=== PATIENT | female | born 1985 | race Caucasian/White ===

== ENCOUNTER 2017-10-05 07:10 | Emergency (ER) | payer BC ==
[2017-10-05] MEDS ORDERED: Cephalexin CAP* 500 MG PO ONE (08:17)
[2017-10-05] MEDS ORDERED: Phenazopyridine TAB* 100 MG PO ONE (08:18)
--- NOTE | 2017-10-05 08:18 | UC ---
Complaint Female HPI - HPI Summary HPI Summary: The patient is a 31-year-old female with a 1 day history of dysuria urgency and frequency. She denies fever or chills. She denies any nausea or vomiting. She has mild suprapubic pain. She is currently on her period. A number of years ago she was admitted to the hospital for pyelonephritis. She denies any history of kidney stones. - History Of Current Complaint Chief Complaint: UCGU Stated Complaint: URINARY COMPLAINT Time Seen by Provider: 10/05/17 08:12 Hx Obtained From: Patient Hx Last Menstrual Period: 10/02/17 Onset/Duration: Gradual Onset, Lasting Hours Timing: Intermittent, Lasting Seconds Severity Initially: Mild Severity Currently: Mild Pain Intensity: 1 Pain Scale Used: 0-10 Numeric Aggravating Factor(s): Urination Associated Signs And Symptoms: Positive: Vaginal Bleeding/Discharge - on period Related Hx: Similar Episode/Dx as: - UTI - Allergies/Home Medications Allergies/Adverse Reactions: Allergies Allergy/AdvReac Type Severity Reaction Status Date / Time No Known Allergies Allergy Verified 10/26/15 08:56 PMH/Surg Hx/FS Hx/Imm Hx Previously Healthy: Yes GI/ History: Other Other GI/ History: admitted to hospital once for pyelo - Surgical History Surgical History: None - Family History Known Family History: Positive: None Negative: Cardiac Disease, Hypertension, Diabetes - Social History Alcohol Use: Occasionally Substance Use Type: None Smoking Status (MU): Former Smoker Type: Cigarettes Amount Used/How Often: occasional use Review of Systems Constitutional: Negative Skin: Negative Eyes: Negative ENT: Negative Respiratory: Negative Cardiovascular: Negative Gastrointestinal: Negative Genitourinary: Dysuria, Frequency, Urgency Motor: Negative Neurovascular: Negative Musculoskeletal: Negative Neurological: Negative Psychological: Negative Is Patient Immunocompromised?: No All Other Systems Reviewed And Are Negative: Yes Physical Exam Triage Information Reviewed: Yes Appearance: Well-Appearing, No Pain Distress, Well-Nourished Vital Signs: Initial Vital Signs Temp 97.6 F 10/05/17 07:35 Pulse 53 10/05/17 07:35 Resp 13 10/05/17 07:35 BP 125/77 10/05/17 07:35 Pulse Ox 99 10/05/17 07:35 Eyes: Positive: Conjunctiva Clear ENT: Positive: Hearing grossly normal. Negative: Nasal congestion, Nasal drainage, Trismus, Muffled voice, Hoarse voice Neck: Positive: Supple Respiratory: Positive: Lungs clear, Normal breath sounds, No respiratory distress, No accessory muscle use Cardiovascular: Positive: RRR, No Murmur Abdomen Description: Positive: Nontender, No Organomegaly. Negative: CVA Tenderness (R), CVA Tenderness (L) Bowel Sounds: Positive: Present Musculoskeletal: Positive: ROM Intact, No Edema Neurological: Positive: Alert Psychological Exam: Normal Skin Exam: Normal Diagnostics - Laboratory Diagnostic Studies Completed/Ordered: urine dip + RBCs+WBCs Complaint Female Dx - Differential Dx/Diagnosis Provider Diagnoses: acute dysuria/suspect UTI Discharge - Sign-Out/Discharge Documenting (check all that apply): Discharge/Admit/Transfer - Discharge Plan Condition: Stable Disposition: HOME Prescriptions: Cephalexin CAP* [Keflex CAP*] 500 mg PO BID #9 cap Phenazopyridine TAB* [Pyridium TAB*] 100 mg PO TID #5 tab Patient Education Materials: Urinary Tract Infection in Women (ED) Referrals: No Primary Care Phys,NOPCP [Primary Care Provider] - Additional Instructions: I suspect you have a UTI A urine culture is pending It will take about 48 hours to come back I expect you to be better in about 48 hours If not please call us to check on culture results recheck for fever/severe back pain or vomiting - Billing Disposition and Condition Condition: STABLE Disposition: Home
[2017-10-05 08:43] VITALS: BP 125/77
== END 2017-10-05 08:30 | disposition home or self-care (01) ==
LOC: UCCORT 07:10
DX: R30.0 Dysuria (principal)
CPT/HCPCS: 81003; 87086; 99212; A9270-GY; G0463

== ENCOUNTER 2017-10-11 18:04 | Emergency (ER) | payer BC ==
[2017-10-11 18:21] VITALS: BP 114/89
--- NOTE | 2017-10-11 18:52 | UC ---
Complaint Female HPI - HPI Summary HPI Summary: Patient complains of urinary frequency, burning, urgency starting at 3 PM today. Denies fever, cough, sore throat, CP, SOB, N/V/D, abdominal pain, flank pain, change in BM, vaginal symptoms. Patient was seen here 10/05 for same symptoms and was given an prescription for Keflex. Patient states she took all the Keflex, and symptoms started to resolve same day she started the antibiotics. States today's symptoms are the same as prior symptoms. Also states she had unprotected sex with a new sexual partner and is concerned for herpes exposure and would like to be tested. Denies any vaginal symptoms or lesions. Refuses HIV test, states she has been tested recently. Medical history is none. - History Of Current Complaint Chief Complaint: UCGU Stated Complaint: RE-CK URINARY COMPLAINT Time Seen by Provider: 10/11/17 18:27 Hx Obtained From: Patient Hx Last Menstrual Period: 10/02/17 Severity Currently: None Pain Intensity: 0 Pain Scale Used: 0-10 Numeric Associated Signs And Symptoms: Positive: Negative - Allergies/Home Medications Allergies/Adverse Reactions: Allergies Allergy/AdvReac Type Severity Reaction Status Date / Time No Known Allergies Allergy Verified 10/11/17 18:16 PMH/Surg Hx/FS Hx/Imm Hx Previously Healthy: Yes - Surgical History Surgical History: None - Family History Known Family History: Positive: None Negative: Cardiac Disease, Hypertension, Diabetes - Social History Alcohol Use: Weekly Substance Use Type: None Smoking Status (MU): Former Smoker Type: Cigarettes Amount Used/How Often: occasional use Review of Systems Constitutional: Negative Skin: Negative Eyes: Negative ENT: Negative Respiratory: Negative Cardiovascular: Negative Gastrointestinal: Negative Genitourinary: Dysuria, Frequency, Urgency Motor: Negative Neurovascular: Negative Musculoskeletal: Negative Neurological: Negative Psychological: Negative Is Patient Immunocompromised?: Yes All Other Systems Reviewed And Are Negative: Yes Physical Exam - Summary Physical Exam Summary: Patient refused pelvic exam. Triage Information Reviewed: Yes Appearance: Well-Appearing Vital Signs: Initial Vital Signs Temp 98 F 10/11/17 18:14 Pulse 65 10/11/17 18:14 Resp 16 10/11/17 18:14 BP 114/89 10/11/17 18:14 Pulse Ox 100 10/11/17 18:14 Vital Signs Reviewed: Yes Eyes: Positive: Conjunctiva Clear. Negative: Discharge Neck exam: Normal Neck: Positive: Supple Respiratory Exam: Normal Cardiovascular Exam: Normal Abdominal Exam: Normal Musculoskeletal Exam: Normal Neurological Exam: Normal Psychological Exam: Normal Skin Exam: Normal Complaint Female Dx - Course Course Of Treatment: Patient complains of urinary frequency, burning, urgency starting at 3 PM today. Denies fever, cough, sore throat, CP, SOB, N/V/D, abdominal pain, flank pain, change in BM, vaginal symptoms. Patient was seen here 10/05 for same symptoms and was given an prescription for Keflex. Patient states she took all the Keflex, and symptoms started to resolve same day she started the antibiotics. States today's symptoms are the same as prior symptoms. Also states she had unprotected sex with a new sexual partner and is concerned for herpes exposure and would like to be tested. Denies any vaginal symptoms or lesions. Refuses HIV test, states she has been tested recently. Medical history is none. Patient declined pelvic exam and HIV testing. GC/ Chlamydia by urine pending. Vital signs within normal limits. Urine culture results from 10/05 negative. UA today POS for leuks, will be cultured. Rx for bactrim. - Differential Dx/Diagnosis Provider Diagnoses: uti Discharge - Sign-Out/Discharge Documenting (check all that apply): Discharge/Admit/Transfer - Discharge Plan Condition: Stable Disposition: HOME Prescriptions: Sulfamethox/Trimethoprim DS* [Bactrim DS 800/160 TAB*] 1 tab PO BID 10 Days #20 tab Patient Education Materials: [facility]utch Instructions (ED), Urinary Tract Infection in Women (ED), Dysuria (ED) Referrals: No Primary Care Phys,NOPCP [Primary Care Provider] - [facility] [Outside] Additional Instructions: Follow-up with primary care. Return to the ED for any new or worsening symptoms - Billing Disposition and Condition Condition: STABLE Disposition: Home
[2017-10-13 14:31] LABS: Herpes Simplex Virus II IgG AB Negative (Negative)
== END 2017-10-11 19:35 | disposition home or self-care (01) ==
LOC: UCCORT 18:04
DX: N39.0 Urinary tract infection, site not specified (principal); Z87.891 Personal history of nicotine dependence
CPT/HCPCS: 81003; 84702; 86694; 86695; 86696; 87086; 87491; 87591; 99212; G0463